=== PATIENT | female | born 1995 | race Caucasian/White ===

== ENCOUNTER → 2017-08-02 | Outpatient (CLI) | payer BC ==
--- NOTE | 2017-08-02 14:46 | RADIOLOGY IMAGING REPORT ---
FACILITY: [facility] [place] PATIENT NAME: Katelyn Day : 1995 MR: [id number] V: [id number] EXAM DATE: ORDERING PHYSICIAN: DAINA LEMA TECHNOLOGIST: [facility] Patient: Katelyn Day : 1995 Visit/Account:[id number] Date of Sevice: 08/02/2017 EXAMINATION: Right upper quadrant abdominal ultrasound HISTORY: Right upper quadrant pain. COMPARISON: None. FINDINGS: Liver: Normal hepatic echotexture. No focal liver lesions identified. Antegrade flow is visualized in the main portal vein. Gallbladder: Normal sonographic appearance of the gallbladder, without evidence of stones or sludge. No gallbladder wall thickening or pericholecystic fluid. Negative sonographic Medina sign. Bile Ducts: No biliary ductal dilatation. The common duct measures 3 mm. Pancreas: The head and body of the pancreas are moderately well visualized and unremarkable where se en. Right kidney: Normal echogenicity of the right kidney. The renal cortical parenchyma is maintained. N o hydronephrosis. The right kidney measures 9.3 cm in length. Aorta: Patent and normal in caliber. IVC: Patent. Ascites: None. IMPRESSION: Unremarkable right upper quadrant abdominal ultrasound. Report Dictated By: Amilcar Harris MD at 08/02/2017 2:40 PM Report E-Signed By: Amilcar Harris MD at 08/02/2017 2:41 PM [id number]
== END ==
LOC: US 00:14
PROVIDERS: ATTEND Nurse Practitioner Family
DX: R10.11 Right upper quadrant pain (principal)
CPT/HCPCS: 76705